=== PATIENT | female | born 1960 | race Caucasian/White ===

== ENCOUNTER 2018-07-20 12:22 | Emergency (ER) | payer SELFPAY ==
[~2018-07-20] VITALS: Ht 172.7 cm; Wt 80.5 kg
[2018-07-20] MEDS ORDERED: MULT-658 PO (14:23)
[2018-07-20] MEDS ORDERED: ASCO500T8 PO (14:23)
[2018-07-20] MEDS ORDERED: OMEG1CAP23 PO (14:23)
[2018-07-20 15:13] VITALS: BP 143/103
--- NOTE | 2018-07-20 15:14 | NUR ---
Patient/Caregiver given discharge instructions and they have confirmed that they understand the instructions. Patient ambulatory with steady gait.
== END 2018-07-20 15:15 | disposition home or self-care (01) ==
LOC: ED 12:56
DX: B35.4 Tinea corporis (principal)
CPT/HCPCS: 93005; 99283

== ENCOUNTER 2018-08-03 13:29 | Emergency (ER) | payer MEDICAID, OTHER ==
[~2018-08-03] VITALS: Ht 172.7 cm; Wt 81.4 kg
[~2018-08-03 13:29] MED LIST: ASCO500T8 PO; MULT-658 PO; OMEG1CAP23 PO
[2018-08-03 14:34] VITALS: BP 160/100
--- NOTE | 2018-08-03 14:40 | NUR ---
bp rechecked by aristides douglass dc.
--- NOTE | 2018-08-03 14:43 | NUR ---
pt given dc instructions and rx, eduated regarding dc rx for triaminolone and calcipotriene. pt educated not to apply calcipotriene to face. pt a&o, resps even and unlabored, no complaint at dc. pt amb to dc desk with steady gait, nadn at dc.
== END 2018-08-03 14:48 | disposition home or self-care (01) ==
LOC: ED 14:32
DX: L40.0 Psoriasis vulgaris (principal); I10 Essential (primary) hypertension
CPT/HCPCS: 99283